=== PATIENT | female | born 1945 | race Caucasian/White ===

== ENCOUNTER → 2017-02-09 | Outpatient (CLI) | payer OTHER, BC | LOC: BMCIMAGING 13:21 | DX: Z12.31 Encounter for screening mammogram for malignant neoplasm of breast (principal); N63 Unspecified lump in breast | CPT/HCPCS: G0202 ==

== ENCOUNTER → 2017-02-20 | Outpatient (CLI) | payer OTHER, BC | LOC: BMCIMAGING 09:49 | PROVIDERS: ATTEND Family Medicine | DX: R92.8 Other abnormal and inconclusive findings on diagnostic imaging of breast (principal) | CPT/HCPCS: G0206 ==

== ENCOUNTER 2017-09-12 17:33 | Emergency (ER) | payer OTHER, BC ==
--- NOTE | 2017-09-12 17:48 | CPEKG ---
Heart Rate: 158 RR Interval: 380 QRSD Interval: 74 QT Interval: 280 QTC Interval: 454 QRS [place]: 26 T Wave [place]: -63 EKG Severity - ABNORMAL ECG - EKG Impression: ATRIAL FIBRILLATION WITH RAPID V-RATE EKG Impression: REPOLARIZATION ABNORMALITY, PROB RATE RELATED Electronically Signed By: Alex Murcia 14-Sep-2017 21:35:21
[2017-09-12 17:53] VITALS: RESP 16
[2017-09-12] MEDS ORDERED: NS 1,000 ML IV ONE (17:59)
[2017-09-12] MEDS ORDERED: DILTIAZEM 25 MG/5 ML VIAL IVP ONE ×3 (18:03→20:30)
[2017-09-12 18:15] LABS: % IMMATURE GRANULYOCYTES 0.2 % (0.0-1.1); ABSOLUTE IMMATURE GRANULOCYTES 0.01 10^3/uL (0.00-0.10); ADD DIFF? NO; ADD MORPH? NO; ADD SCAN? NO; ATYPICAL LYMPHOCYTE FLAG 0 (0-99); FRAGMENT RBC FLAG 0 (0-99); HEMATOCRIT 42.8 % (38.0-47.0); HEMOGLOBIN 14.7 g/dL (12.6-16.3); LEFT SHIFT FLG 0 (0-99); LIPEMIA HEMOLYSIS FLAG 90 (0-99); MEAN CELL HEMOGLOBIN 32.2 pg (27.9-34.1); MEAN CELL HEMOGLOBIN CONCENTR. 34.3 g/dL (32.4-36.7); MEAN CELL VOLUME 93.7 fL (81.5-99.8); MEAN PLATELET VOLUME 9.1 fL (8.7-11.7); PLATELET CLUMPS FLAG 10 (0-99); PLATELET COUNT 204 10^3/uL (150-400); RED BLOOD CELL COUNT 4.57 10^6/uL (4.18-5.33); RED CELL DISTRIBUTION WIDTH 12.3 % (11.5-15.2)
[2017-09-12 18:30] LABS: INR 0.92 (0.83-1.16); PROTIME(PATIENT) 12.3 SEC (12.0-15.0)
[2017-09-12 18:31] LABS: APTT 28.6 SEC (23.0-38.0)
[2017-09-12 18:32] LABS: ANION GAP 15 mEq/L (8-16); CALCIUM 9.5 mg/dL (8.5-10.4); CARBON DIOXIDE 24 mEq/l (22-31); CHLORIDE 102 mEq/L (97-110); CREATININE 0.7 mg/dL (0.6-1.0); GLOMERULAR FILTRATION RATE > 60; GLUCOSE 112 mg/dL (70-100); SODIUM 141 mEq/L (134-144)
[2017-09-12 18:44] LABS: TROPONIN I < 0.012 ng/mL (0.000-0.034)
[2017-09-12] MEDS ORDERED: IOPAMIDOL (ISOVUE 370) 100 ML BTL IV ONE (19:19)
[2017-09-12 19:44] VITALS: TEMP 98.1
--- NOTE | 2017-09-12 20:00 | EDPHY ---
HPI/HX/ROS/PE/MDM Narrative: CC: Palpitations. HPI: This is a 71 year-old female with no significant past medical history. She complains of palpitations, irregular heart beat for several hours, exact onset unknown. She states she has experienced intermittent episodes such as these many times over the last year, including one that led to a syncopal event a few months ago. She has been evaluated by her doctor for this, but has apparently had a negative workup - no cardiac monitoring performed. She denies chest pain, shortness of breath or fever. No new medications. Her family member who is a residential caregiver auscultated her heart during this current episode and recommended she go to the ER. PMH: None significant. No known heart disease. FH: Mother had a-fib. 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 PHYSICAL EXAM: General:Patient is alert, in no acute distress. ENT:Eyes are normal to inspection. ENT inspection normal. Neck: Normal inspection. Full range of motion. Respiratory:No respiratory distress. Breath sounds normal bilaterally. Cardiovascular: Tachycardic rate and irregular rhythm. Strong peripheral pulses. Abdomen:The abdomen is nontender to palpation. There are no peritoneal signs. There are normal bowel sounds. Back: Normal to inspection. No tenderness to palpation. Skin: Normal color. No rash. Warm and dry. Extremities: Normal appearance. Full range of motion. Neuro: Oriented x3. Normal motor function. Normal sensory function. ED Course: EKG reveals atrial fibrillation with RVR. Patient given 20mg diltiazem and IV fluids. Consulted Dr. Hobbs from Cardiology. He recommends discharge home on Metoprolol XR and Eliquis. They will see on Thursday in office and potentially cardiovert. On re-evaluation just prior to discharge, patient noted to now be in NSR with HR 78. She is asymptomatic. We discussed plan for discharge and she will still take the Eilquis until she follows-up with Cardiology. Strict return precautions reviewed with the patient. MDM: This patient presents with rapid a-fib. Given her history, I suspect she has paroxysmal atrial fibrillation. As she is not sure when this current episode began, and given her history, I do not think she is a safe candidate for electrical cardioversion. CXR revealed possible mediaststinal mass, so CTA was performed which is negative for PE or mass. Patient remained hemodynamically stable throughout her ED stay. I see no evidence for thyroid storm, PE, ACS, PNA , VTach. - Data Points Imaging Results: Imaging Impressions Chest X-Ray 09/12/17 17:59 Impression: Possible left mediastinal mass. If there are any old outside chest x -rays, we would be happy to review them. Consider chest CT with IV contrast for further evaluation. Results were communicated to Dr. Eligio Lizama at 19:06 PM. Chest/Thorax CTA 09/12/17 19:12 Impression: 1. No pulmonary embolic disease. 2. 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 3. Solitary left lung noncalcified nodule. If this is a low risk patient no further imaging follow-up is required. If this is a high risk patient then follow-up is recommended in 12 months. Of course, if there are any old outside chest CTs, we would be happy to review them, to assess for interval change. Results communicated to Dr. Caceres in at 20:31 PM General information for patients regarding this examination can be found at [email or web address]. If you have questions or comments about this report, please contact me at (hospital) or [phone] (cell). Laboratory Results: Laboratory Results 09/12/17 18:10 09/12/17 18:10 09/12/17 09/12/17 09/12/17 18:10 18:10 18:10 WBC RBC Hgb Hct MCV MCH MCHC RDW Plt Count MPV Neut % (Auto) Lymph % (Auto) [place] % (Auto) Eos % (Auto) Baso % (Auto) Nucleat RBC Rel Count Absolute Neuts (auto) Absolute Lymphs (auto) Absolute Monos (auto) Absolute Eos (auto) Absolute Basos (auto) Absolute Nucleated RBC Immature Gran % Immature Gran # PT 12.3 SEC SEC (12.0-15.0) INR 0.92 (0.83-1.16) APTT 28.6 SEC SEC (23.0-38.0) Sodium 141 mEq/L mEq/L (134-144) Potassium 4.0 mEq/L mEq/L (3.5-5.2) Chloride 102 mEq/L mEq/L (97-110) Carbon Dioxide 24 mEq/l mEq/l (22-31) Anion Gap 15 mEq/L mEq/L (8-16) BUN 16 mg/dL mg/dL (7-23) Creatinine 0.7 mg/dL mg/dL (0.6-1.0) Estimated GFR > 60 Glucose 112 mg/dL H mg/dL (70-100) Calcium 9.5 mg/dL mg/dL (8.5-10.4) Troponin I < 0.012 ng/mL ng/mL (0.000-0.034) TSH 3.040 uIU/mL uIU/mL (0.465-4.680) 09/12/17 18:10 WBC 6.00 10^3/uL 10^3/uL (3.80-9.50) RBC 4.57 10^6/uL 10^6/uL (4.18-5.33) Hgb 14.7 g/dL g/dL (12.6-16.3) Hct 42.8 % % (38.0-47.0) MCV 93.7 fL fL (81.5-99.8) MCH 32.2 pg pg (27.9-34.1) MCHC 34.3 g/dL g/dL (32.4-36.7) RDW 12.3 % % (11.5-15.2) Plt Count 204 10^3/uL 10^3/uL (150-400) MPV 9.1 fL fL (8.7-11.7) Neut % (Auto) 50.3 % % (39.3-74.2) Lymph % (Auto) 38.3 % % (15.0-45.0) Swift % (Auto) 7.5 % % (4.5-13.0) Eos % (Auto) 3.0 % % (0.6-7.6) Baso % (Auto) 0.7 % % (0.3-1.7) Nucleat RBC Rel Count 0.0 % % (0.0-0.2) Absolute Neuts (auto) 3.02 10^3/uL 10^3/uL (1.70-6.50) Absolute Lymphs (auto) 2.30 10^3/uL 10^3/uL (1.00-3.00) Absolute Monos (auto) 0.45 10^3/uL 10^3/uL (0.30-0.80) Absolute Eos (auto) 0.18 10^3/uL 10^3/uL (0.03-0.40) Absolute Basos (auto) 0.04 10^3/uL 10^3/uL (0.02-0.10) Absolute Nucleated RBC 0.00 10^3/uL 10^3/uL (0-0.01) Immature Gran % 0.2 % % (0.0-1.1) Immature Gran # 0.01 10^3/uL 10^3/uL (0.00-0.10) PT INR APTT Sodium Potassium Chloride Carbon Dioxide Anion Gap BUN Creatinine Estimated GFR Glucose Calcium Troponin I TSH Medications Given: Discontinued Medications Apixaban (Eliquis) 5 mg PO EDNOW ONE Stop: 09/12/17 20:51 Last Admin: 09/12/17 21:10 Dose: 5 mg Diltiazem HCl (Cardizem 25 Mg/5 Ml Vial) 20 mg IVP EDNOW ONE Stop: 09/12/17 18:04 Last Admin: 09/12/17 18:14 Dose: 20 mg Diltiazem HCl (Cardizem 25 Mg/5 Ml Vial) 20 mg IVP EDNOW ONE Stop: 09/12/17 18:49 Last Admin: 09/12/17 18:56 Dose: 20 mg Diltiazem HCl (Cardizem 25 Mg/5 Ml Vial) 20 mg IVP EDNOW ONE Stop: 09/12/17 20:31 Last Admin: 09/12/17 20:36 Dose: 20 mg Sodium Chloride (Ns) 1,000 mls @ 0 mls/hr IV EDNOW ONE; Wide Open PRN Reason: Protocol Stop: 09/12/17 18:00 Last Admin: 09/12/17 18:09 Dose: 1,000 mls Metoprolol Succinate (Toprol Xl) 25 mg PO EDNOW ONE Stop: 09/12/17 20:51 Last Admin: 09/12/17 21:02 Dose: Not Given Metoprolol Tartrate (Lopressor) 25 mg PO EDNOW ONE Stop: 09/12/17 21:03 Last Admin: 09/12/17 21:10 Dose: 25 mg General Time Seen by Provider: 09/12/17 17:40 Initial Vital Signs: Initial Vital Signs Temperature (C) 36.4 C 09/12/17 17:49 Heart Rate 145 H 09/12/17 17:49 Respiratory Rate 16 09/12/17 17:49 Blood Pressure 142/105 H 09/12/17 17:49 O2 Sat (%) 96 09/12/17 17:49 O2 Delivery Mode Room Air Allergies/Adverse Reactions: Sulfa (Sulfonamide Antibiotics) Allergy (Verified 09/12/17 17:41) Home Medications: Medication Instructions Recorded Apixaban [Eliquis] 5 mg PO BID #3 tab 09/12/17 Estrogens, Conjugated 09/12/17 Metoprolol Succinate Xr [Toprol Xl 25 mg PO DAILY #2 tab.sr 09/12/17 25 mg (*)] Progesterone 09/12/17 TESTOSTERONE 09/12/17 Departure - Departure Disposition: Home, Routine, Self-Care Clinical Impression: Atrial fibrillation, Atrial fibrillation with RVR Condition: Good Instructions: Metoprolol (By mouth), Apixaban (By mouth), A-fib (Atrial Fibrillation) (ED) Additional Instructions: Follow-up with [facility] on Thursday. If you are still in an irregular heartbeat, you may need to not eat or drink anything starting Thursday midnight, but they will hopefully contact you to discuss this. Take medications as prescribed. Take your pulse rate if it feels elevated. You should be in the 110 bmp range or lower. If higher, or lower than 60bpm, return to the ED. Return to the ED immediately for chest pain, shortness of breath, elevated heart rate, passing out or other concerns. Referrals: Elias Hobbs MD [Medical Doctor] - As per Instructions Prescriptions: Apixaban [Eliquis] 5 mg PO BID #3 tab Metoprolol Succinate Xr [Toprol Xl 25 mg (*)] 25 mg PO DAILY #2 tab.sr
[2017-09-12] MEDS ORDERED: APIXABAN 5 MG TAB PO ONE (20:50)
[2017-09-12] MEDS ORDERED: METOPROLOL SUCCINATE XR 25 MG TAB PO ONE (20:50)
[2017-09-12] MEDS ORDERED: METOPROLOL TARTRATE 25 MG TAB PO ONE (21:02)
--- NOTE | 2017-09-12 21:17 | CPEKG ---
Heart Rate: 76 RR Interval: 789 P-R Interval: 160 QRSD Interval: 78 QT Interval: 384 QTC Interval: 432 P [place]: 66 QRS [place]: 27 T Wave [place]: 38 EKG Severity - NORMAL ECG - EKG Impression: SINUS RHYTHM Electronically Signed By: Alex Murcia 14-Sep-2017 21:35:15
[2017-09-12 21:27] VITALS: BP 104/67; PULSE 100; O2SAT 94
== END 2017-09-12 21:27 | disposition home or self-care (01) ==
LOC: CED 17:33
DX: I48.91 Unspecified atrial fibrillation (principal); E86.9 Volume depletion, unspecified
CPT/HCPCS: 71020; 71275; 93005; 96361; 96374; 96376; 99285; Q9967; 80048-PO; 84443-PO; 84484-PO; 85025-PO; 85610-PO; 85730-PO

== ENCOUNTER → 2017-10-02 | Outpatient (CLI) | payer OTHER, BC | LOC: BHCLAF 10:45 | PROVIDERS: ATTEND Internal Medicine Cardiovascular Disease | DX: I48.91 Unspecified atrial fibrillation (principal) | CPT/HCPCS: 93306-PO ==

== ENCOUNTER → 2017-10-06 | Outpatient (CLI) | payer OTHER, BC | LOC: BHFA 09:00 | PROVIDERS: ATTEND Internal Medicine | DX: I48.91 Unspecified atrial fibrillation (principal) ==

== ENCOUNTER → 2018-03-12 | Outpatient (CLI) | payer OTHER, MEDICARE | LOC: BMCIMAGING 08:25 | PROVIDERS: ATTEND Internal Medicine | DX: Z12.31 Encounter for screening mammogram for malignant neoplasm of breast (principal) ==

== ENCOUNTER → 2018-10-25 | Outpatient (CLI) | payer OTHER, MEDICARE | LOC: BHFA 10:30 | PROVIDERS: ATTEND Internal Medicine Interventional Cardiology | DX: I48.0 Paroxysmal atrial fibrillation (principal) ==

== ENCOUNTER → 2018-11-08 | Outpatient (CLI) | payer OTHER, MEDICARE | LOC: BMCIMAGING 10:01 | PROVIDERS: ATTEND Internal Medicine | DX: Z13.820 Encounter for screening for osteoporosis (principal); M85.89 Other specified disorders of bone density and structure, multiple sites ==